=== PATIENT | male | born 1955 | race Caucasian/White ===

== ENCOUNTER 2016-04-15 02:18 | Inpatient (IN) | payer MEDICAID ==
[~2016-04-15] VITALS: Ht 177.8 cm; Wt 95.1 kg
[2016-04-15 03:22] LABS: Basophils # (auto) 0 uL; Basophils % (auto) 0.3 % (0.0-2.0); Eosinophils # (auto) 0 uL; Hematocrit 36.7 % (41.0-53.0); Hemoglobin 11.6 g/dL (13.5-17.5); Lymphocytes % (auto) 18.2 % (10.0-50.0); Mean Corpuscular Hemoglobin 27.6 pg (28.0-32.0); Mean Corpuscular Hgb Conc. 31.8 g/dL (32.0-36.0); Mean Corpuscular Volume 86.9 fL (80.0-100.0); Mean Platelet Volume 7.5 fL (7.4-10.4); Monocytes # (auto) 1.3 uL; Monocytes % (auto) 11.8 % (0.0-12.0); Neutrophils # (auto) 7.7 uL; Neutrophils % (auto) 69.7 % (37.0-80.0); Platelet Count (auto) 266 10^3/uL (140-450)
[2016-04-15 03:33] LABS: Albumin 3.5 g/dL (3.4-5.0); BUN/Creatinine Ratio 24.4; Calcium 8.3 mg/dL (8.5-10.1); Potassium 4.2 mmol/L (3.5-5.1)
[2016-04-15 03:35] LABS: Bilirubin, Total 0.3 mg/dL (0.2-1.0); Total Protein 7.3 g/dL (6.4-8.2)
[2016-04-15 04:20] LABS: Urine RBC None Seen /hpf (0 - 3)
[2016-04-15 04:31] LABS: Urine Bilirubin Negative (Negative); Urine Blood Negative /uL (Negative); Urine Color Yellow (Yellow); Urine Glucose Normal (Normal); Urine Ketone Negative (Negative); Urine Nitrite Negative (Negative); Urine Urobilinogen Normal (Negative)
[2016-04-15] MEDS ORDERED: LORazepam 2MG/ML-1ML VIAL IV PRN (12:45)
[2016-04-15] MEDS ORDERED: TEMAZEPAM 15 MG CAP PO PRN (12:45)
[2016-04-15] MEDS ORDERED: ONDANSETRON HCL 4 MG/2 ML VIAL IV PRN (12:45)
[2016-04-15] MEDS ORDERED: HYDROcodone-ACET 5/325MG TAB PO PRN (12:45)
[2016-04-15] MEDS ORDERED: DOCUSATE SOD 100 MG CAP PO PRN (12:45)
[2016-04-15] MEDS ORDERED: MORPHINE SULF INJ 2 MG/ML SYRINGE 1ML IV PRN ×2 (12:45)
[2016-04-15] MEDS ORDERED: NITROGLYCERIN 0.4 MG SL TAB SL PRN (12:45)
[2016-04-15] MEDS ORDERED: ACETAMINOPHEN 325 MG TAB PO PRN (12:45)
[2016-04-15] MEDS ORDERED: MULTIPLE VITAMIN TAB PO SCH (13:30)
[2016-04-15] MEDS: SODIUM CHLOR 0.9% PF (SALINE LOCK) 10ML VIAL IV SCH ×2 (13:35→22:26)
[2016-04-15] MEDS: ENOXAPARIN SOD 40 MG/0.4 ML SYRINGE SC SCH (13:35)
[2016-04-15 16:30] VITALS: BP 89/53
[2016-04-15 19:57] LABS: Cholesterol 128 mg/dL (<200); HDL Cholesterol 62 mg/dL (40-59); LDL Cholesterol 56 mg/dL (<100); Triglycerides 98 mg/dL (<150)
[2016-04-15 20:00] VITALS: BP 80/40
[2016-04-15 20:12] LABS: Temperature: 22.3 C (20.0-25.0)
[2016-04-15 22:00] VITALS: BP 81/43
[2016-04-15] MEDS ORDERED: SODIUM CHLORIDE 0.9% 500 ML IV ONE (22:45)
[2016-04-16] VITALS (7 sets, daily range): BP systolic 87–104; BP diastolic 43–80
[2016-04-16] MEDS: SODIUM CHLORIDE 0.9% 1,000 ML IV SCH ×2 (00:51→12:05)
[2016-04-16 05:52] LABS: Basophils # (auto) 0 uL; Basophils % (auto) 0.4 % (0.0-2.0); Eosinophils # (auto) 0 uL; Eosinophils % (auto) 0.1 % (0.0-7.0); Hematocrit 31.7 % (41.0-53.0); Hemoglobin 9.9 g/dL (13.5-17.5); Lymphocytes # (auto) 2.3 uL; Lymphocytes % (auto) 30.8 % (10.0-50.0); Mean Corpuscular Hemoglobin 27.4 pg (28.0-32.0); Mean Corpuscular Hgb Conc. 31.1 g/dL (32.0-36.0); Mean Platelet Volume 7.6 fL (7.4-10.4); Monocytes % (auto) 13.2 % (0.0-12.0); Neutrophils # (auto) 4.2 uL; Neutrophils % (auto) 55.5 % (37.0-80.0); Platelet Count (auto) 218 10^3/uL (140-450); Red Cell Distribution Width 14.3 % (11.6-16.0); White Blood Cell 7.6 10^3/uL (4.4-10.8)
[2016-04-16 06:07] LABS: Albumin 2.6 g/dL (3.4-5.0); Calcium 7.6 mg/dL (8.5-10.1); Potassium 3.8 mmol/L (3.5-5.1)
[2016-04-16 06:09] LABS: BUN/Creatinine Ratio 30.9
[2016-04-16 06:12] LABS: Bilirubin, Total 0.2 mg/dL (0.2-1.0); Total Protein 5.5 g/dL (6.4-8.2)
[2016-04-16] MEDS: SODIUM CHLOR 0.9% PF (SALINE LOCK) 10ML VIAL IV SCH ×3 (06:12→21:51)
[2016-04-16] MEDS: ENOXAPARIN SOD 40 MG/0.4 ML SYRINGE SC SCH (10:15)
[2016-04-16] MEDS ORDERED: MULTIPLE VITAMIN 10 ML, FOLIC ACID 1 MG, MAGNESIUM SULF SDV 50% 8 MEQ in SODIUM CHLORID... IV SCH (12:00)
[2016-04-16] MEDS ORDERED: THIAMINE HCL 100 MG TAB PO ONE (16:15)
[2016-04-16] MEDS ORDERED: QUEtiapine FUMARATE 25 MG TAB PO SCH (22:00)
[2016-04-17] MEDS: SODIUM CHLORIDE 0.9% 1,000 ML IV SCH ×2 (03:16→09:43)
[2016-04-17 05:00] VITALS: BP 98/51
[2016-04-17 06:04] LABS: Basophils # (auto) 0 uL; Basophils % (auto) 0.5 % (0.0-2.0); Eosinophils # (auto) 0 uL; Eosinophils % (auto) 0.1 % (0.0-7.0); Hematocrit 33.4 % (41.0-53.0); Hemoglobin 10.4 g/dL (13.5-17.5); Lymphocytes # (auto) 2.8 uL; Lymphocytes % (auto) 41.4 % (10.0-50.0); Mean Corpuscular Hemoglobin 27.5 pg (28.0-32.0); Mean Corpuscular Volume 88.7 fL (80.0-100.0); Mean Platelet Volume 7.8 fL (7.4-10.4); Monocytes # (auto) 0.7 uL; Monocytes % (auto) 10.9 % (0.0-12.0); Neutrophils # (auto) 3.2 uL; Neutrophils % (auto) 47.1 % (37.0-80.0); Platelet Count (auto) 225 10^3/uL (140-450); Red Cell Distribution Width 14.3 % (11.6-16.0); White Blood Cell 6.9 10^3/uL (4.4-10.8)
[2016-04-17 06:28] LABS: BUN/Creatinine Ratio 26.5; Potassium 4.2 mmol/L (3.5-5.1)
[2016-04-17] MEDS: SODIUM CHLOR 0.9% PF (SALINE LOCK) 10ML VIAL IV SCH (06:32)
[2016-04-17 08:00] VITALS: BP 114/49
[2016-04-17] MEDS: ENOXAPARIN SOD 40 MG/0.4 ML SYRINGE SC SCH (09:40)
[2016-04-17] MEDS ORDERED: THIAMINE HCL 100 MG TAB PO SCH (10:00)
[2016-04-17] MEDS ORDERED: MULTIPLE VITAMIN IV SCH ×5 (12:00)
[2016-04-17] MEDS ORDERED: FOLIC ACID IV SCH ×5 (12:00)
[2016-04-17] MEDS ORDERED: MAGNESIUM SULF IV SCH ×5 (12:00)
[2016-04-17] MEDS ORDERED: [UNRECOGNIZED DRUG - OTHER] IV SCH ×5 (12:00)
[2016-04-17] MEDS ORDERED: HALOPERIDOL 1 MG TAB PO ONE (12:15)
[2016-04-17 13:00] VITALS: BP 129/56
[2016-04-17 13:11] VITALS: BP 129/56
== END 2016-04-17 14:08 | disposition home or self-care (01) | DRG 52 ==
LOC: ER 02:18 → TELE 02:19 → TELE-CENTR 14:57
PROVIDERS: ADMIT Internal Medicine; ATTEND Hospitalist
DX: G93.41 Metabolic encephalopathy (principal); C41.9 Malignant neoplasm of bone and articular cartilage, unspecified; G31.9 Degenerative disease of nervous system, unspecified; E87.1 Hypo-osmolality and hyponatremia; E83.51 Hypocalcemia; F20.0 Paranoid schizophrenia; E86.0 Dehydration; G45.4 Transient global amnesia; D63.8 Anemia in other chronic diseases classified elsewhere; Z59.0 Homelessness; G40.909 Epilepsy, unspecified, not intractable, without status epilepticus; I70.8 Atherosclerosis of other arteries; Z91.83 Wandering in diseases classified elsewhere; R73.9 Hyperglycemia, unspecified
CPT/HCPCS: 36415; 70450; 70551; 71010; 71250; 74176; 78306; 80048; 80053; 80061; 80164; 81001; 82270; 82607; 82746; 82962; 84439; 84443; 85025; 87086; 92610; 93005; 93306; 93886; 93971; 95819; 97001; G0434